=== PATIENT | female | born 1990 | race African-American/Black ===

== ENCOUNTER 2017-10-02 11:13 | Emergency (ER) | payer OTHER ==
[~2017-10-02] VITALS: Ht 175.3 cm; Wt 113.0 kg
[~2017-10-02 11:13] MED LIST: PREDNISONE 20 M20 MG PO; PROAIR HFA8.5 GM INH; ZPAK PO
[2017-10-02 15:09] VITALS: BP 158/86
== END 2017-10-02 15:12 | disposition short-term general hospital (02) ==
LOC: ER 11:13
DX: B02.30 Zoster ocular disease, unspecified (principal); J45.909 Unspecified asthma, uncomplicated; Z87.891 Personal history of nicotine dependence